=== PATIENT | female | born 1995 | race Two or more races ===

== ENCOUNTER 2020-08-24 11:20 | Outpatient (CLI) | payer MEDICAID | END 2020-08-24 12:06 | disposition home or self-care (01) | LOC: OB 11:20 | PROVIDERS: ATTEND Specialist | DX: Z20.822 Contact with and (suspected) exposure to COVID-19 (principal) | CPT/HCPCS: C9803; U0003 ==

== ENCOUNTER 2020-08-26 04:37 | Inpatient (IN) | payer MEDICAID ==
[2020-08-26] VITALS (19 sets, daily range): BP systolic 102–125; BP diastolic 59–84
[~2020-08-26] VITALS: Ht 157.5 cm; Wt 75.7 kg
[2020-08-26] MEDS ORDERED: ceFAZolin 1GM/50ML 50 ML IV ONE (04:45)
[2020-08-26] MEDS ORDERED: LACTATED RINGER'S 1,000 ML IV ONE (04:45)
[2020-08-26 05:17] LABS: Basophils # (auto) 0.1 10 ^3/uL (0-0.2); Lymphocytes # (auto) 2.4 10 ^3/uL (0.4-5.4); Lymphocytes % (auto) 25.3 % (10.0-50.0); Monocytes # (auto) 0.7 10 ^3/uL (0-1.3); Red Cell Distribution Width 19.1 % (11.8-14.3)
[2020-08-26 05:19] LABS: Basophils % (auto) 1.2 % (0.0-2.0); Eosinophils # (auto) 0.1 10 ^3/uL (0-0.8); Eosinophils % (auto) 0.7 % (0.0-7.0); Hematocrit 30.9 % (36.0-46.0); Hemoglobin 10.2 g/dL (12.2-16.2); Mean Corpuscular Hemoglobin 23.9 pg (28.0-32.0); Mean Corpuscular Hgb Conc. 33.1 g/dL (32.0-36.0); Mean Corpuscular Volume 72.2 fL (80.0-100.0); Monocytes % (auto) 7.1 % (0.0-12.0); Neutrophils # (auto) 6.1 10 ^3/uL (1.6-8.6); Neutrophils % (auto) 65.7 % (37.0-80.0); Platelet Count (auto) 250 10^3/uL (140-450); Red Blood Cells 4.27 10^6/uL (4.0-5.20); White Blood Cell 9.3 10^3/uL (4.4-10.8)
[2020-08-26 05:24] LABS: Urine Bacteria MOD /hpf (None Seen); Urine Blood Negative /uL (Negative); Urine Mucus FEW (None Seen); Urine Specific Gravity 1.022 (1.001-1.035); Urine WBC 3 /hpf (0 - 5)
[2020-08-26 05:34] LABS: INR 0.89 (0.9-1.15); Partial Thromboplastin Time 22.3 sec (23.0-31.2)
[2020-08-26 05:42] LABS: Albumin 2.6 g/dL (3.4-5.0); Alcohol, Urine < 3.0 mg/dL (0-10); Amphetamine Screen, Urine NEGATIVE (NEGATIVE); Barbiturate Scree,Urine NEGATIVE (NEGATIVE); Benzodiazephine Screen, Urine NEGATIVE (NEGATIVE); Calcium 8.4 mg/dL (8.5-10.1); Cannabinoid Screen, Urine NEGATIVE (NEGATIVE); Cocaine Screen, Urine NEGATIVE (NEGATIVE); Opiate Scree,Urine NEGATIVE (NEGATIVE); Phencyclidine Screen, Urine NEGATIVE (NEGATIVE); Potassium 3.9 mmol/L (3.5-5.1)
[2020-08-26 05:45] LABS: BUN/Creatinine Ratio 26.7; Bilirubin, Total 0.2 mg/dL (0.2-1.0); Total Protein 6.3 g/dL (6.4-8.2)
[2020-08-26] MEDS ORDERED: PREN-96 PO (05:53)
[2020-08-26] MEDS: LACTATED RINGER'S 1,000 ML IV SCH ×3 (05:58→10:39)
[2020-08-26] MEDS ORDERED: SUCCINYLCHOLINE CHLORIDE 20 MG/ML 10ML VIAL IV ONE (07:31)
[2020-08-26] MEDS ORDERED: TETRACAINE 1% INJ 2 ML VIAL IJ ONE (07:31)
[2020-08-26] MEDS ORDERED: FAMOTIDINE (10MG/ML) 2ML VL IV ONE (07:31)
[2020-08-26] MEDS ORDERED: fentaNYL CITRATE 100 MCG/2 ML VL ONE ×2 (07:32→08:12)
[2020-08-26] MEDS ORDERED: MORPHINE SULF(PF) 0.5MG/ML 10ML VIAL ONE (07:32)
[2020-08-26] MEDS ORDERED: GLYCOPYRROLATE 0.2 MG/ML 1ML VIAL ONE (07:33)
[2020-08-26] MEDS ORDERED: ePHEDrine SULFATE 50 MG/ML AMP ONE (07:33)
[2020-08-26] MEDS ORDERED: PHENYLEPHRINE HCL 10 MG/ML VL ONE (07:33)
[2020-08-26] MEDS ORDERED: oxyTOCIN 10 UNIT/ML 10ML VIAL ONE (07:33)
[2020-08-26] MEDS ORDERED: ONDANSETRON HCL 4 MG/2 ML VIAL ONE (07:33)
[2020-08-26] MEDS ORDERED: MORPHINE SULFATE 4 MG/ML SYR/VIAL IV PRN (07:45)
[2020-08-26] MEDS ORDERED: ONDANSETRON HCL 4 MG/2 ML VIAL IV PRN ×2 (07:45→09:15)
[2020-08-26] MEDS ORDERED: GUM (CHEWING) 1 GUM CHEW CHEW ONE (07:45)
[2020-08-26] MEDS ORDERED: LACT. RINGERS/OXYTOCIN 20UNITS 1,000 ML IV ONE ×2 (07:45→10:15)
[2020-08-26] MEDS ORDERED: MIDAZOLAM HCL 1MG/1ML-2 ML VIAL ONE ×2 (08:04→08:27)
[2020-08-26] MEDS ORDERED: HYDROCORTISONE SOD SUCC 100 MG/2ML INJ VIAL ONE (08:21)
[2020-08-26] MEDS ORDERED: ROCURONIUM 10MG/ML 10ML VIAL IV ONE (08:22)
[2020-08-26] MEDS ORDERED: MIDAZOLAM DRIP 50 mg/50mL 50 ML IV ONE (08:44)
[2020-08-26] MEDS ORDERED: PHENYLEPHRINE INJ 40 MG in SODIUM CHL 0.9% 246 ML IV SCH (08:45)
[2020-08-26] MEDS ORDERED: MIDAZOLAM DRIP 50 mg/50mL 50 ML IV SCH (08:45)
[2020-08-26] MEDS ORDERED: HYDROmorphone HCL 2 MG/ML VL ONE (09:01)
[2020-08-26] MEDS ORDERED: HYDROmorphone HCL 2 MG/ML VL IV ONE ×2 (09:06→09:16)
[2020-08-26] MEDS ORDERED: HYDROmorphone HCL 2 MG/ML VL IV PRN (09:15)
[2020-08-26] MEDS ORDERED: IOHEXOL 350 MG/ML 100ML IJ ONE (09:15)
[2020-08-26] MEDS ORDERED: ESMOLOL HCL (10MG/ML) 10 ML VIAL IV ONE (09:30)
[2020-08-26] MEDS ORDERED: ETOMIDATE (2MG/ML) 20ML VIAL IV ONE (09:33)
[2020-08-26 09:34] LABS: % Iron Saturation 9.2 % (15-50)
[2020-08-26] MEDS ORDERED: CARVEDILOL 3.125 MG TAB PO SCH (10:00)
[2020-08-26] MEDS ORDERED: LISINOPRIL 5 MG TAB PO SCH (10:00)
[2020-08-26] MEDS ORDERED: OXYTOCIN 10UNIT/ML 1ML VIAL ONE (10:07)
[2020-08-26] MEDS ORDERED: FUROSEMIDE 20 MG/2 ML VIAL ONE (10:42)
[2020-08-26] MEDS ORDERED: FUROSEMIDE 20 MG/2 ML VIAL IV ONE (10:45)
[2020-08-26] MEDS ORDERED: MAGNESIUM SULFATE 1GM/100ML 100 ML IV ONE (10:45)
[2020-08-26] MEDS: DOBUTamine 1000MCG/ML 250 ML IV SCH ×2 (11:07→16:41)
[2020-08-26] MEDS ORDERED: IPRATROPIUM BROM 0.5 MG/2.5ML INH SOL NEB SCH (13:00)
[2020-08-26] MEDS ORDERED: ALBUTEROL SULF 2.5 MG/0.5ML(0.5%) NEB SOLN NEB SCH (13:00)
[2020-08-26] MEDS ORDERED: NITROGLYCERIN 0.4 MG SL TAB SL PRN (14:15)
[2020-08-26] MEDS ORDERED: MORPHINE SULF INJ 2 MG/ML SYRINGE 1ML IV PRN (14:15)
[2020-08-26] MEDS ORDERED: ceFAZolin 1GM/50ML 50 ML IV SCH (15:00)
[2020-08-26 21:34] LABS: Basophils # (auto) 0.1 10 ^3/uL (0-0.2); Basophils % (auto) 0.4 % (0.0-2.0); Eosinophils # (auto) 0 10 ^3/uL (0-0.8); Hematocrit 30.2 % (36.0-46.0); Lymphocytes # (auto) 1.2 10 ^3/uL (0.4-5.4); Lymphocytes % (auto) 6.9 % (10.0-50.0); Mean Corpuscular Hemoglobin 23.7 pg (28.0-32.0); Mean Corpuscular Hgb Conc. 33.2 g/dL (32.0-36.0); Mean Corpuscular Volume 71.3 fL (80.0-100.0); Monocytes # (auto) 0.8 10 ^3/uL (0-1.3); Monocytes % (auto) 4.8 % (0.0-12.0); Neutrophils # (auto) 15.2 10 ^3/uL (1.6-8.6); Neutrophils % (auto) 87.9 % (37.0-80.0); Platelet Count (auto) 258 10^3/uL (140-450); Red Blood Cells 4.24 10^6/uL (4.0-5.20); Red Cell Distribution Width 19.3 % (11.8-14.3); White Blood Cell 17.3 10^3/uL (4.4-10.8)
[2020-08-27 07:07] LABS: RPR Non Reactive (Non Reactive)
== END 2020-08-26 21:30 | disposition short-term general hospital (02) | DRG 540 ==
LOC: LDRP 04:37 → UNDOADMIN 04:37 → LDRP 08:39 → ICU WEST 14:11 → LDRP 14:54
PROVIDERS: ADMIT Obstetrics & Gynecology; ATTEND Obstetrics & Gynecology
PROC: 10D00Z1 Extraction of Products of Conception, Low, Open Approach (ICD-10-PCS; principal; 2020-08-26 07:43)
DX: O34.211 Maternal care for low transverse scar from previous cesarean delivery (principal); I21.4 Non-ST elevation (NSTEMI) myocardial infarction; J96.01 Acute respiratory failure with hypoxia; J81.0 Acute pulmonary edema; O90.3 Peripartum cardiomyopathy; I47.1 Supraventricular tachycardia; O99.53 Diseases of the respiratory system complicating the puerperium; O99.02 Anemia complicating childbirth; D50.8 Other iron deficiency anemias; O99.214 Obesity complicating childbirth; E66.9 Obesity, unspecified; I34.0 Nonrheumatic mitral (valve) insufficiency; Z3A.39 39 weeks gestation of pregnancy; Z37.0 Single live birth
CPT/HCPCS: 36415; 36600; 59025; 71045; 71260; 74177; 80053; 80307; 81001; 82805; 82962; 83540; 83550; 83735; 83880; 84443; 84484; 85025; 85049; 85610; 85730; 86592; 86850; 86900; 86901; 87070; 87081; 87205; 93306; 94003; 96360; 96361; G0378; J0330; J0690; J2250; J2405; J2590; J3490

== ENCOUNTER 2020-08-31 12:23 | Emergency (ER) | payer MEDICAID ==
[~2020-08-31] VITALS: Ht 157.5 cm; Wt 64.0 kg
[~2020-08-31 12:23] MED LIST: PREN-96 PO
[2020-08-31] MEDS ORDERED: traMADol HCL 50 MG TAB PO ONE (14:00)
[2020-08-31] MEDS ORDERED: SODIUM CHLORIDE 0.9% 1,000 ML IV ONE (14:00)
[2020-08-31 14:34] LABS: Eosinophils # (auto) 0.1 10 ^3/uL (0-0.8); Monocytes # (auto) 0.4 10 ^3/uL (0-1.3); White Blood Cell 12.8 10^3/uL (4.4-10.8)
[2020-08-31 14:35] LABS: Basophils # (auto) 0 10 ^3/uL (0-0.2); Basophils % (auto) 0.3 % (0.0-2.0); Eosinophils % (auto) 0.9 % (0.0-7.0); Hematocrit 38.6 % (36.0-46.0); Hemoglobin 12.8 g/dL (12.2-16.2); Lymphocytes # (auto) 1.6 10 ^3/uL (0.4-5.4); Lymphocytes % (auto) 12.2 % (10.0-50.0); Mean Corpuscular Hemoglobin 23.9 pg (28.0-32.0); Mean Corpuscular Hgb Conc. 33.1 g/dL (32.0-36.0); Mean Corpuscular Volume 72.2 fL (80.0-100.0); Monocytes % (auto) 3.3 % (0.0-12.0); Neutrophils # (auto) 10.6 10 ^3/uL (1.6-8.6); Neutrophils % (auto) 83.3 % (37.0-80.0); Platelet Count (auto) 600 10^3/uL (140-450); Red Blood Cells 5.35 10^6/uL (4.0-5.20)
[2020-08-31 14:42] LABS: Red Cell Distribution Width 20.3 % (11.8-14.3)
[2020-08-31 14:43] LABS: Albumin 3.2 g/dL (3.4-5.0); Calcium 9.7 mg/dL (8.5-10.1); Potassium 3.8 mmol/L (3.5-5.1)
[2020-08-31 14:47] LABS: BUN/Creatinine Ratio 33.3; Bilirubin, Total 0.4 mg/dL (0.2-1.0); Total Protein 8.3 g/dL (6.4-8.2)
[2020-08-31] MEDS ORDERED: SODIUM CHLORIDE 0.9% 500 ML IV ONE (15:30)
[2020-08-31 18:37] VITALS: BP 126/90
== END 2020-08-31 16:56 | disposition short-term general hospital (02) ==
LOC: ER 12:23
DX: R51.9 Headache, unspecified (principal); D72.829 Elevated white blood cell count, unspecified; R77.8 Other specified abnormalities of plasma proteins; I11.0 Hypertensive heart disease with heart failure; I50.9 Heart failure, unspecified; Z20.822 Contact with and (suspected) exposure to COVID-19
CPT/HCPCS: 36415; 70450; 80053; 83605; 83880; 84484; 85025; 85049; 87040; 87426; 93005; 99285; J7030